=== PATIENT | female | born 1995 | race Hispanic/Latino ===

== ENCOUNTER 2017-12-21 13:58 | Inpatient (IN) | payer OTHER ==
[~2017-12-21] VITALS: Ht 154.9 cm; Wt 77.1 kg
[2017-12-21] VITALS (9 sets, daily range): BP systolic 113–132; BP diastolic 60–78
[2017-12-21 14:19] LABS: APPEARANCE,URINE Clear (CLEAR); BILIRUBIN,URINE Negative (NEGATIVE); COLOR,URINE Yellow (YELLOW); GLUCOSE, URINE (UA) Negative (NEGATIVE); KETONES,URINE Negative (NEGATIVE); LEUKOCYTE ESTERASE ,URINE Negative (NEGATIVE); NITRATE,URINE Negative (NEGATIVE); OCCULT BLOOD,URINE Negative (NEGATIVE); PROTEIN,URINE Negative (NEGATIVE)
[2017-12-21 14:31] LABS: BASOPHILS % (AUTO) 0.2 % (0.0-5.0); EOSINOPHILS % (AUTO) 0.1 % (0.0-8.0); HEMATOCRIT 32.8 % (36-48); LYMPHOCYTES % (AUTO) 11.1 % (21.0-51.0); MEAN CORPUSCULAR HEMOGLOBIN 27.2 pg (27.0-33.0); MEAN CORPUSCULAR HGB CONC 33.1 g/dL (32.0-36.0); MEAN CORPUSCULAR VOLUME 82.1 fL (79-99); MONOCYTES % (AUTO) 3.9 % (3.0-13.0); NEUTROPHILS % (AUTO) 84.7 % (40.0-77.0); PLATELET COUNT (AUTO) 355 K/uL (130-400); RED BLOOD CELL COUNT(AUTO) 3.99 MIL/uL (4.00-5.50); WHITE BLOOD COUNT (AUTO) 13.2 K/uL (4.8-10.8)
[2017-12-21 14:38] LABS: CREATININE 0.6 mg/dL (0.5-1.5); POTASSIUM 3.6 mmol/L (3.5-5.1)
[2017-12-21 14:44] LABS: ALBUMIN 3.7 g/dL (3.5-5.0); BILIRUBIN,TOTAL 0.2 mg/dL (0.2-1.0); TOTAL PROTEIN, SERUM 7.5 g/dL (6.0-8.3)
[2017-12-21 14:45] LABS: HCG,QUAL RESULT POSITIVE (NEGATIVE)
[2017-12-21] MEDS ORDERED: ACETAMINOPHEN EXTRA STRENGTH 500 MG TABLET ONE (16:47)
[2017-12-21] MEDS ORDERED: SODIUM CHLORIDE 0.9% 1000ML 1,000 ML IV ONE (17:37)
[2017-12-21 18:03] LABS: AMPHET/METH SCREEN,URINE NEGATIVE (NEGATIVE); BARBITURATE SCREEN, URINE NEGATIVE (NEGATIVE); BENZODIAZEPINES SCREEN,URINE NEGATIVE (NEGATIVE); CANNABINOID SCREEN,URINE NEGATIVE (NEGATIVE); COCAINE SCREEN,URINE NEGATIVE (NEGATIVE); OPIATE SCREEN,URINE NEGATIVE (NEGATIVE); PHENCYCLIDINE SCREEN,URINE NEGATIVE (NEGATIVE)
[2017-12-21] MEDS ORDERED: CLINDAMYCIN 900 MG/D5% WATER 50 ML IV ONE (22:39)
[2017-12-21] MEDS ORDERED: PHENYLEPHRINE HCL 10 MG/ML 1ML VIAL IV ONE (22:46)
[2017-12-21] MEDS ORDERED: SUCCINYLCHOLINE CHLORIDE 20 MG/ML 10 ML VIAL ONE (22:46)
[2017-12-21] MEDS ORDERED: NEOSTIGMINE 5MG/5ML SYR IV ONE (22:46)
[2017-12-21] MEDS ORDERED: ROCURONIUM BROMIDE 10MG/1ML 5ML VL ONE ×2 (22:46→23:02)
[2017-12-21] MEDS ORDERED: GLYCOPYRROLATE 0.2 MG/ML 5 ML VIAL ONE (22:46)
[2017-12-21] MEDS ORDERED: LIDOCAINE PF 2% 5ML ABBOJECT ONE (22:46)
[2017-12-21] MEDS ORDERED: LIDOCAINE HCL 4% LTA SOL 4 ML VIAL ONE (22:46)
[2017-12-21] MEDS ORDERED: LIDOCAINE HCL-MPF 1% 5ML AMP IJ ONE (22:46)
[2017-12-21] MEDS ORDERED: MIDAZOLAM HCL 1 MG/ML 2ML VIAL ONE (22:47)
[2017-12-21] MEDS ORDERED: PROPOFOL 10 MG/ML 20ML VIAL IV ONE (22:47)
[2017-12-21] MEDS ORDERED: FENTANYL CITRATE PF 50 MCG/1 ML 5ML AMP IV ONE (22:47)
[2017-12-21] MEDS: LACTATED RINGERS 1000ML 1,000 ML IV SCH (23:40)
[2017-12-21] MEDS ORDERED: MEPERIDINE-PF 25 MG/ML SYG ONE (23:52)
[2017-12-22] VITALS (21 sets, daily range): BP systolic 92–138; BP diastolic 52–89
[2017-12-22] MEDS: LACTATED RINGERS 1000ML 1,000 ML IV SCH ×7 (00:47→19:12)
[2017-12-22] MEDS ORDERED: PROMETHAZINE HCL 25 MG/ML 1ML AMPULE IM PRN (01:00)
[2017-12-22] MEDS ORDERED: MEPERIDINE-PF 50 MG/ML SYG IM PRN (01:30)
[2017-12-22] MEDS: CLINDAMYCIN 900 MG/D5% WATER 50 ML IV SCH ×2 (05:46→14:42)
[2017-12-22 06:48] LABS: HEMATOCRIT 31.3 % (36-48); MEAN CORPUSCULAR HEMOGLOBIN 28.5 pg (27.0-33.0); MEAN CORPUSCULAR HGB CONC 34.8 g/dL (32.0-36.0); MEAN CORPUSCULAR VOLUME 81.7 fL (79-99); PLATELET COUNT (AUTO) 336 K/uL (130-400); RED BLOOD CELL COUNT(AUTO) 3.84 MIL/uL (4.00-5.50); RED CELL DISTRIBUTION WIDTH 15.6 % (11.0-15.5); WHITE BLOOD COUNT (AUTO) 14.4 K/uL (4.8-10.8)
[2017-12-22] MEDS ORDERED: BISACODYL 10 MG SUPP.RECT RC PRN (08:00)
[2017-12-22] MEDS ORDERED: HYDROCODONE/ACETAMINOPHEN 5/325 MG TAB PO PRN (08:00)
[2017-12-22] MEDS ORDERED: ACETAMINOPHEN-CODEINE 300/30MG TAB PO PRN (08:00)
[2017-12-22] MEDS: DOCUSATE SODIUM 100 MG CAP PO PRN ×2 (10:00→21:15)
[2017-12-22] MEDS: SIMETHICONE 80 MG TAB.CHEW PO PRN ×4 (10:00→21:15)
[2017-12-22] MEDS: IBUPROFEN 800 MG TAB PO PRN ×2 (10:02→17:20)
[2017-12-23 00:15] VITALS: BP 96/56
[2017-12-23 04:38] VITALS: BP 94/59
[2017-12-23 08:14] VITALS: BP 106/53
[2017-12-23] MEDS: SIMETHICONE 80 MG TAB.CHEW PO PRN (09:29)
[2017-12-23] MEDS: DOCUSATE SODIUM 100 MG CAP PO PRN (09:29)
[2017-12-23] MEDS: IBUPROFEN 800 MG TAB PO PRN (09:31)
[2017-12-23 11:31] VITALS: BP 98/53
== END 2017-12-23 13:50 | disposition home or self-care (01) | DRG 777 ==
LOC: EDH 13:58 → EDHIP 13:59 → WSH 18:50
PROVIDERS: ADMIT Obstetrics & Gynecology; ATTEND Obstetrics & Gynecology
PROC: 0UB50ZZ Excision of Right Fallopian Tube, Open Approach (ICD-10-PCS; principal; 2017-12-21 22:50)
DX: O00.101 Right tubal pregnancy without intrauterine pregnancy (principal); Z88.0 Allergy status to penicillin; N83.201 Unspecified ovarian cyst, right side; E66.01 Morbid (severe) obesity due to excess calories; Z68.32 Body mass index [BMI] 32.0-32.9, adult
CPT/HCPCS: 36415; 76817; 80053; 80305; 81003; 81025; 83690; 84702; 85025; 85027; 86900; 86901; 88305; A4344; J0330; J2001; J2175; J2250; J2370; J2550; J2704; J2710; J3010; J3490; J7030; J7120